=== PATIENT | female | born 1930 | race Caucasian/White ===

== ENCOUNTER → 2016-07-29 | Outpatient (CLI) | payer BC, MEDICARE ==
[~2016-07-29] MED LIST: AROM25TA PO; ATOR10 PO; CADU10TA PO; DARV PO; EVENING PRIMROSE; GLUCTAB47 PO; LEVO.05 PO; MAGN400T PO; PROZ20CA11 PO; TAB-TAB PO; VITA100017 PO; VITA400C70 PO
== END ==
LOC: HRAD 14:06
PROVIDERS: ATTEND Family Medicine
DX: Z00.00 Encounter for general adult medical examination without abnormal findings (principal)